=== PATIENT | female | born 1970 ===

== ENCOUNTER 2023-12-14 15:56 | Emergency (ER) | payer BC ==
[2023-12-14] MEDS ORDERED: Sodium Chloride 0.9% 10 ML Syringe FLUSH PRN (16:04)
[2023-12-14 16:18] LABS: BASOPHILS ABSOLUTE AUTO 0.04 K/uL (0.00-0.20); BASOPHILS PERCENT AUTO 0.2 % (0.0-2.0); EOSINOPHILS ABSOLUTE AUTO 0.03 K/uL (0.00-0.50); EOSINOPHILS PERCENT AUTO 0.2 % (0.0-5.0); HEMATOCRIT 34.9 % (34.0-46.0); HEMOGLOBIN 11.3 g/dL (11.7-15.5); LYMPHOCYTES ABSOLUTE AUTO 1.74 K/uL (0.50-3.50); LYMPHOCYTES PERCENT AUTO 10.6 % (10.0-50.0); MEAN CORPUSCULAR HEMOGLOBIN 30.9 pg (28.2-33.3); MEAN CORPUSCULAR HGB CONC 32.4 g/dL (31.7-36.0); MEAN CORPUSCULAR VOLUME 95.4 fL (84.0-98.0); MONOCYTES ABSOLUTE AUTO 0.69 K/uL (0.00-1.00); MONOCYTES PERCENT AUTO 4.2 % (2.0-14.0); NEUTROPHILS ABSOLUTE AUTO 13.91 K/uL (1.40-7.00); NEUTROPHILS PERCENT AUTO 84.8 % (45.0-80.0); PLATELET COUNT,PLT 321 K/uL (150-350); RED BLOOD CELL COUNT 3.66 M/uL (3.77-5.09); RED CELL DISTRIBUTION WIDTH 12.4 % (11.2-14.1); WHITE BLOOD CELL COUNT,WBC 16.4 K/uL (4.0-10.2)
[2023-12-14] MEDS: Pantoprazole 40 MG Vial IVPUSH ONE (16:20)
[2023-12-14] MEDS: Sodium Chloride 0.9% 2,000 ML IV SCH (16:24)
[2023-12-14] MEDS: Iopamidol 612 MG/ML 100 ML Bottle ONE (16:33)
[2023-12-14] MEDS: Iopamidol 612 MG/ML 100 ML Bottle IVPUSH ONE (16:39)
[2023-12-14 16:47] LABS: ALBUMIN 3.7 g/dL (3.4-5.0); BILIRUBIN TOTAL 0.6 mg/dL (0.2-1.0); CALCIUM 8.5 mg/dL (8.5-10.1); CARBON DIOXIDE,CO2 22.1 mmol/L (21.0-32.0); POTASSIUM,K 4.3 mmol/L (3.5-5.1); PROTEIN TOTAL,TP 7.2 g/dL (6.4-8.2)
[2023-12-14 16:57] LABS: ANION GAP 15.2 meq/L (7-15); CREATININE 0.79 mg/dL (0.51-1.17); EST CRCL DRUG DOSING (CG) 94.16 mL/min
[2023-12-14 17:17] LABS: APPEARANCE,URINE SLIGHTLY CLOUDY; BILIRUBIN,URINE NEGATIVE (NEGATIVE); COLOR,URINE YELLOW; GLUCOSE,URINE NEGATIVE (NEGATIVE); KETONES,URINE NEGATIVE (NEGATIVE); LEUKOCYTE ESTERASE,URINE NEGATIVE (NEGATIVE); NITRITE,URINE NEGATIVE (NEGATIVE); OCCULT BLOOD,URINE TRACE-LYSED (NEGATIVE); PROTEIN,URINE NEGATIVE (NEGATIVE); UROBILINOGEN,URINE 0.2 E.U./dL (0.2-1.0)
[2023-12-14 17:25] LABS: BACTERIA,URINE RARE /HPF (NONE TO FEW); EPITHELIAL CELLS,URINE RARE /LPF; RBC,URINE 0-5 /HPF; WBC,URINE 0-5 /HPF
[2023-12-14 17:46] LABS: AMPHETAMINES SCREEN, URINE NEGATIVE (NEGATIVE); BARBITURATE SCREEN,URINE NEGATIVE (NEGATIVE); BENZODIAZEPINES SCREEN,URINE NEGATIVE (NEGATIVE); COCAINE METABOLITES,URINE NEGATIVE (NEGATIVE); EDDP,URINE SCREEN NEGATIVE (NEGATIVE); METHAMPHETAMINES SCREEN, URINE NEGATIVE (NEGATIVE); TCA SCREEN,URINE NEGATIVE (NEGATIVE); THC SCREEN,URINE 50 NG/ML POSITIVE (NEGATIVE)
[2023-12-14 17:47] LABS: BUPRENORPHINE SCREEN,URINE NEGATIVE (NEGATIVE); OXYCODONE SCREEN,URINE POSITIVE (NEGATIVE)
[2023-12-14] MEDS: Morphine 4 MG/ML Syringe IVPUSH ONE (17:47)
[2023-12-14] MEDS: Ondansetron 4 MG/2 ML SDV IVPUSH ONE (17:47)
[2023-12-14] MEDS: Metoprolol Tartrate 5 MG/5 ML SDV IVPUSH ONE (18:12)
[2023-12-14] MEDS: Lidocaine 2% Viscous Solution 15 ML UD PO ONE (18:12)
[2023-12-14] MEDS: Aluminum Hydroxide/Magnesium Hydroxide/Simethicone Susp 30 ML Cup PO ONE (18:12)
[2023-12-14] MEDS: Atenolol 25 MG Tab PO ONE (18:37)
== END 2023-12-14 18:57 | disposition home or self-care (01) ==
LOC: LL.ED 15:56
DX: K29.60 Other gastritis without bleeding (principal); T39.395A Adverse effect of other nonsteroidal anti-inflammatory drugs [NSAID], initial encounter; R00.0 Tachycardia, unspecified; E86.0 Dehydration; Z91.148 Patient's other noncompliance with medication regimen for other reason; Z88.6 Allergy status to analgesic agent; Z79.899 Other long term (current) drug therapy
CPT/HCPCS: 36415; 74177; 80053; 80305; 80307; 81001; 83605; 83690; 84484; 85025; 93005; 96361; 96374; 96375; 99284; A9270; C9113; J2270; J2405; J3490; J7040; Q9967; 93010

== ENCOUNTER 2023-12-24 09:50 | Day surgery (SDC) | payer BC ==
[~2023-12-24 09:50] MED LIST: Propofol 200 MG/20 ML SDV ONE
[2023-12-24] MEDS ORDERED: Sodium Chloride 0.9% 10 ML Syringe FLUSH PRN (10:15)
[2023-12-24] MEDS ORDERED: Propofol 200 MG/20 ML SDV ONE (10:18)
[2023-12-24] MEDS: Lactated Ringers 1,000 ML IV SCH (10:47)
[2023-12-24] MEDS ORDERED: Lidocaine 2% 5 ML SDV ONE (11:19)
[2023-12-24] MEDS: Lidocaine 2% Viscous Solution 15 ML UD ONE (12:30)
[2023-12-24] MEDS: Aluminum Hydroxide/Magnesium Hydroxide/Simethicone Susp 30 ML Cup PO ONE (12:30)
[2023-12-24] MEDS: Lidocaine 2% Viscous Solution 15 ML UD PO ONE (12:30)
== END 2023-12-24 12:42 | disposition home or self-care (01) ==
LOC: LL.SDS 09:50
PROVIDERS: ATTEND Surgery
DX: K31.89 Other diseases of stomach and duodenum (principal); K25.9 Gastric ulcer, unspecified as acute or chronic, without hemorrhage or perforation
CPT/HCPCS: 43239; 45378; A9270; J2704; J7120; 00813; 36415; 85025; J3490